=== PATIENT | female | born 1945 | race Two or more races ===

== ENCOUNTER 2018-11-19 07:07 | Outpatient (CLI) | payer OTHER | END 2018-11-19 07:13 | disposition home or self-care (01) | LOC: RX STUDY 07:07 | DX: R13.19 Other dysphagia (principal) ==

== ENCOUNTER 2023-06-18 07:29 | Outpatient (CLI) | payer OTHER | END 2023-06-18 07:31 | disposition home or self-care (01) | LOC: TOM 07:29 | PROVIDERS: ATTEND Internal Medicine Gastroenterology | DX: K56.699 Other intestinal obstruction unspecified as to partial versus complete obstruction (principal); G47.33 Obstructive sleep apnea (adult) (pediatric); I10 Essential (primary) hypertension; Z80.0 Family history of malignant neoplasm of digestive organs; Z12.11 Encounter for screening for malignant neoplasm of colon ==